=== PATIENT | female | born 1945 | race African-American/Black ===

== ENCOUNTER 2017-12-07 06:55 | Day surgery (SDC) | payer MEDICARE, BC ==
[~2017-12-07] VITALS: Ht 177.8 cm; Wt 84.8 kg
[~2017-12-07 06:55] MED LIST: LACTATED RINGERS 1,000 ML IV SCH
[2017-12-07] MEDS ORDERED: METO-385 PO (07:30)
[2017-12-07] MEDS ORDERED: LORA0.5T2 PO (07:30)
[2017-12-07] MEDS ORDERED: NAPR220T66 PO (07:30)
[2017-12-07 08:12] LABS: BASOPHILS % 0.4 % (0.0-2.0); EOSINOPHILS % 0.7 % (0.0-5.0); HEMATOCRIT. 41.3 % (36.0-48.0); LYMPHOCYTES % 29.1 % (20.0-50.0); MEAN CORPUSCULAR HEMOGLOBIN 30.2 pg (28.0-32.0); MEAN CORPUSCULAR VOLUME 88.8 fL (81.0-99.0); MONOCYTES % 7.3 % (2.0-8.0); NEUTROPHILS % 62.5 % (40.0-76.0); PLATELET 179 x1000/uL (130-400); RED BLOOD CELL COUNT 4.65 mill/uL (4.2-5.4); RED CELL DISTRIBUTION WIDTH 12.9 % (11.6-14.6)
[2017-12-07 08:13] LABS: CHLORIDE 109 mEq/L (98-107)
[2017-12-07 08:14] LABS: INR 1.1; PARTIAL THROMBOPLASTIN TIME 25.6 sec (23.4-31.0); PROTHROMBIN TIME 10.9 sec (9.4-11.6)
[2017-12-07] MEDS ORDERED: ACETAMINOPHEN 325MG TABLET PO PRN (08:45)
[2017-12-07] MEDS ORDERED: FENTANYL CITRATE/PF 50MCG/ML 2ML VIAL ONE (08:50)
[2017-12-07] MEDS ORDERED: LIDOCAINE HCL/PF 1% 10 MG/ML 5ML VIAL ONE (08:50)
[2017-12-07] MEDS ORDERED: MIDAZOLAM HCL 2 MG/2 ML VIAL ONE (08:50)
[2017-12-07] MEDS ORDERED: GLYCOPYRROLATE 0.2 MG/ML 2ML VIAL ONE (08:50)
[2017-12-07] MEDS ORDERED: PROPOFOL 200MG/20ML VIAL IV ONE (08:50)
[2017-12-07] MEDS ORDERED: CEFAZOLIN SODIUM 1000MG/VIAL ONE (08:51)
[2017-12-07] MEDS ORDERED: ONDANSETRON HCL 4MG/2ML VIAL ONE (08:51)
[2017-12-07] MEDS ORDERED: METOCLOPRAMIDE HCL 10MG/2ML VIAL ONE (08:51)
[2017-12-07] MEDS ORDERED: EPHEDRINE SULFATE 50MG/ML VIAL ONE (09:42)
== END 2017-12-07 11:06 | disposition home or self-care (01) ==
LOC: OR 06:55
PROVIDERS: ATTEND Obstetrics & Gynecology Obstetrics
DX: N84.0 Polyp of corpus uteri (principal); I10 Essential (primary) hypertension; G47.30 Sleep apnea, unspecified; F41.9 Anxiety disorder, unspecified; Z90.49 Acquired absence of other specified parts of digestive tract; Z98.51 Tubal ligation status; K21.9 Gastro-esophageal reflux disease without esophagitis; Z79.01 Long term (current) use of anticoagulants; Z88.2 Allergy status to sulfonamides; Z88.5 Allergy status to narcotic agent
CPT/HCPCS: 36415; 58558; 80048; 85025; 85610; 85730; 88305; 93005; J0690; J2250; J2405; J2765; J3010; J3490; J7120; J2704

== ENCOUNTER 2024-05-31 14:16 | Inpatient (IN) | payer MEDICARE, BC ==
[~2024-05-31] VITALS: Ht 172.7 cm; Wt 72.6 kg
[~2024-05-31 14:16] MED LIST changes: -LACTATED RINGERS 1,000 ML IV SCH; +LORA0.5T2 PO; +METO-385 PO; +NAPR220T66 PO
[2024-05-31 14:19] VITALS: O2SAT 100
[2024-05-31] MEDS ORDERED: LORAZEPAM 2MG/ML INJ IV ONE (14:45)
[2024-05-31 15:28] LABS: BASOPHILS % 0.9 % (0.0-2.0); EOSINOPHILS % 1.7 % (0.0-5.0); HEMATOCRIT. 40.5 % (36.0-48.0); HEMOGLOBIN. 13.5 g/dL (12.0-16.0); LYMPHOCYTES % 32.7 % (20.0-50.0); MEAN CORPUSCULAR HEMOGLOBIN 30.4 pg (28.0-32.0); MEAN CORPUSCULAR HGB CONC 33.2 g/dL (31.0-37.0); MEAN CORPUSCULAR VOLUME 91.5 fL (81.0-99.0); MEAN PLATELET VOLUME 9.8 fl (7.4-10.4); MONOCYTES % 11.4 % (2.0-8.0); NEUTROPHILS % 53.3 % (40.0-76.0); PLATELET 161 x1000/uL (130-400); RED BLOOD CELL COUNT 4.43 mill/uL (4.2-5.4); RED CELL DISTRIBUTION WIDTH 12.7 % (11.6-14.6); WHITE BLOOD COUNT 3.9 x1000/uL (4.5-11.0)
[2024-05-31 15:38] LABS: PARTIAL THROMBOPLASTIN TIME 26.5 sec (23.4-31.0); PROTHROMBIN TIME 11.2 sec (9.6-11.0)
[2024-05-31 16:04] LABS: CHLORIDE 106 mEq/L (98-107); POTASSIUM 3.6 mEq/L (3.5-5.1); SODIUM 140 mEq/L (136-145)
[2024-05-31 16:05] LABS: CARBON DIOXIDE 27 mEq/L (21-32)
[2024-05-31 16:06] LABS: CALCIUM 10.6 mg/dL (8.7-10.4)
[2024-05-31 16:10] LABS: CREATININE 0.9 mg/dL (0.6-1.0); GLUCOSE 95 mg/dL (70-105)
[2024-05-31 16:11] LABS: UREA NITROGEN BLOOD 12 mg/dL (9-23)
[2024-05-31 16:12] LABS: ALANINE AMINOTRANSFERASE 11 IU/L (10-49); ALBUMIN 4.2 g/dL (3.2-4.8); ASPARTATE AMINOTRANSFERASE 22 IU/L (<34)
[2024-05-31 16:13] LABS: BILIRUBIN DIRECT 0.4 mg/dL (<=3.0); BILIRUBIN TOTAL 1.8 mg/dL (0.1-1.0); PROTEIN TOTAL 6.6 g/dL (6.0-8.3)
[2024-05-31 16:20] LABS: TROPONIN I HIGH SENSITIVITY < 4 ng/L (3.0-34)
[2024-05-31] MEDS ORDERED: ASPIRIN 325MG EC TABLET PO ONE (16:45)
[2024-05-31] MEDS: SODIUM CHLORIDE 0.9% 1,000 ML IV ONE (18:39)
[2024-05-31] MEDS: ASPIRIN 325MG EC TABLET PO NR (18:40)
[2024-05-31] MEDS: LORAZEPAM 2MG/ML INJ IV NR (19:13)
[2024-05-31] MEDS ORDERED: DOCUSATE SODIUM 100MG CAPSULE PO PRN (19:45)
[2024-05-31] MEDS ORDERED: GUAIFENESIN 200MG/10ML SUGAR FREE UDC PO PRN (19:45)
[2024-05-31] MEDS ORDERED: CLONIDINE 0.1MG TABLET PO PRN (19:45)
[2024-05-31] MEDS ORDERED: ONDANSETRON HCL 4MG/2ML INJ IV PRN (19:45)
[2024-05-31] MEDS ORDERED: IPRATROPIUM/ALBUTEROL 0.5-3(2.5)MG/3ML NEB HHN PRN (19:45)
[2024-05-31] MEDS ORDERED: MAGNESIUM/ALUMINUM HYDROXIDE/SIMETHICONE 30ML UDC PO PRN (19:45)
[2024-05-31] MEDS ORDERED: ACETAMINOPHEN 325MG TABLET PO PRN (19:45)
[2024-05-31 22:00] VITALS: BP 144/75; PULSE 77; RESP 19; TEMP 36.50292; O2SAT 100
[2024-05-31] MEDS: PANTOPRAZOLE SODIUM 40 MG/VIAL IV SCH (22:11)
[2024-05-31] MEDS: ENOXAPARIN 40MG/0.4ML SYR SUBCUT SCH (22:11)
[2024-05-31] MEDS: ACETAMINOPHEN 325MG TABLET PO PRN (22:19)
[2024-05-31 23:14] VITALS: BP 150/86; PULSE 82; RESP 19; TEMP 36.2512
[2024-05-31] MEDS: AMLODIPINE 5MG TABLET PO SCH (23:45)
[2024-06-01] VITALS: BP 140/75; PULSE 75; RESP 18; TEMP 36.78072; O2SAT 100
[2024-06-01 04:00] VITALS: BP 141/78; PULSE 69; RESP 18; TEMP 36.33624; O2SAT 100
[2024-06-01 06:50] LABS: TROPONIN I HIGH SENSITIVITY 7 ng/L (3.0-34)
[2024-06-01 06:53] LABS: CHLORIDE 108 mEq/L (98-107)
[2024-06-01 06:54] LABS: CALCIUM 10.4 mg/dL (8.7-10.4); CARBON DIOXIDE 23 mEq/L (21-32); POTASSIUM 3.7 mEq/L (3.5-5.1); SODIUM 141 mEq/L (136-145); T4 FREE 1.51 ng/dL (0.89-1.76)
[2024-06-01 06:55] LABS: FOLIC ACID (FOLATE) SERUM 14.51 ng/mL (>5.38); VITAMIN B12 SERUM 764 pg/mL (211-911)
[2024-06-01 06:56] LABS: THYROID STIMULATING HORMONE 1.56 uIU/mL (0.55-4.78)
[2024-06-01 06:59] LABS: BASOPHILS % 0.5 % (0.0-2.0); CREATININE 0.8 mg/dL (0.6-1.0); EOSINOPHILS % 1.2 % (0.0-5.0); GLUCOSE 86 mg/dL (70-105); HEMATOCRIT. 40.1 % (36.0-48.0); HEMOGLOBIN. 13.1 g/dL (12.0-16.0); LYMPHOCYTES % 33.3 % (20.0-50.0); MEAN CORPUSCULAR HEMOGLOBIN 30.5 pg (28.0-32.0); MEAN CORPUSCULAR HGB CONC 32.6 g/dL (31.0-37.0); MEAN CORPUSCULAR VOLUME 93.6 fL (81.0-99.0); MEAN PLATELET VOLUME 10.2 fl (7.4-10.4); PLATELET 164 x1000/uL (130-400); RED BLOOD CELL COUNT 4.29 mill/uL (4.2-5.4); RED CELL DISTRIBUTION WIDTH 12.8 % (11.6-14.6); WHITE BLOOD COUNT 4.3 x1000/uL (4.5-11.0)
[2024-06-01 07:00] LABS: LDL CHOLESTEROL 122 mg/dL (5-100); TRIGLYCERIDE 53 mg/dL (0-150); UREA NITROGEN BLOOD 7 mg/dL (9-23)
[2024-06-01 07:01] LABS: ALANINE AMINOTRANSFERASE 9 IU/L (10-49); ASPARTATE AMINOTRANSFERASE 22 IU/L (<34); CHOLESTEROL 199 mg/dL (<200); CREATINE KINASE 83 IU/L (34-145); HDL CHOLESTEROL 61 mg/dL (>65); PHOSPHORUS 3.1 mg/dL (2.5-4.9)
[2024-06-01 07:02] LABS: BILIRUBIN TOTAL 2.1 mg/dL (0.1-1.0); PROTEIN TOTAL 6.3 g/dL (6.0-8.3)
[2024-06-01 08:00] VITALS: BP 148/81; PULSE 69; RESP 20; TEMP 36.3918; O2SAT 100
[2024-06-01] MEDS: THIAMINE HCL 100MG TABLET PO SCH (08:08)
[2024-06-01 12:00] VITALS: BP 158/94; PULSE 80; RESP 16; TEMP 36.55848; O2SAT 100
[2024-06-01 16:00] VITALS: BP 132/80; PULSE 95; RESP 17; TEMP 36.6696; TEMP 36.66960; O2SAT 100
[2024-06-01] MEDS ORDERED: PROPRANOLOL HCL 10MG TABLET PO SCH (21:00)
[2024-06-01] MEDS ORDERED: FAMOTIDINE 20MG TABLET PO SCH (21:00)
[2024-06-01] MEDS ORDERED: ATORVASTATIN CALCIUM 20MG TABLET PO SCH (21:00)
[2024-06-02] MEDS ORDERED: FAMOTIDINE 20MG/2ML VIAL IV SCH (09:00)
== END 2024-06-01 19:40 | disposition left against medical advice (07) | DRG 640 ==
LOC: ER 14:16 → EDBEDREQTM 16:39 → EDBEDREQ 16:39 → 5WST 21:27 → 3WST 22:45
PROVIDERS: ADMIT Hospitalist; ATTEND Hospitalist
DX: E83.52 Hypercalcemia (principal); I33.0 Acute and subacute infective endocarditis; I10 Essential (primary) hypertension; G31.9 Degenerative disease of nervous system, unspecified; R90.82 White matter disease, unspecified; Z53.29 Procedure and treatment not carried out because of patient's decision for other reasons; M19.90 Unspecified osteoarthritis, unspecified site; E78.5 Hyperlipidemia, unspecified; E80.7 Disorder of bilirubin metabolism, unspecified; Z88.2 Allergy status to sulfonamides; Z79.899 Other long term (current) drug therapy; Z88.5 Allergy status to narcotic agent
CPT/HCPCS: 36415; 71045; 80048; 80053; 80061; 80076; 82550; 82607; 82746; 82962; 83735; 83880; 84100; 84439; 84443; 84484; 85025; 93005; 93306; 99285; J1650; J2060; J2470; J7030

== ENCOUNTER 2024-07-10 19:11 | Emergency (ER) | payer MEDICARE, BC ==
[~2024-07-10] VITALS: Ht 162.6 cm; Wt 80.0 kg
[2024-07-10 19:15] VITALS: TEMP 97.6; O2SAT 98
[2024-07-10] MEDS: KETOROLAC 30MG/ML VIAL IV STA (20:39)
[2024-07-10] MEDS: SODIUM CHLORIDE 0.9% 1,000 ML IV ONE (20:40)
[2024-07-10 20:44] LABS: BASOPHILS % 0.4 % (0.0-2.0); EOSINOPHILS % 1.8 % (0.0-5.0); HEMATOCRIT. 35.1 % (36.0-48.0); HEMOGLOBIN. 11.6 g/dL (12.0-16.0); LYMPHOCYTES % 26.9 % (20.0-50.0); MEAN CORPUSCULAR HEMOGLOBIN 30.2 pg (28.0-32.0); MEAN CORPUSCULAR HGB CONC 33.2 g/dL (31.0-37.0); MEAN CORPUSCULAR VOLUME 91.1 fL (81.0-99.0); MEAN PLATELET VOLUME 9.7 fl (7.4-10.4); MONOCYTES % 12.8 % (2.0-8.0); NEUTROPHILS % 58.1 % (40.0-76.0); PLATELET 204 x1000/uL (130-400); RED BLOOD CELL COUNT 3.85 mill/uL (4.2-5.4); RED CELL DISTRIBUTION WIDTH 13.3 % (11.6-14.6)
[2024-07-10] MEDS ORDERED: HYDROCODONE/ACETAMINOPHEN 5/325MG TABLET PO ONE (20:45)
[2024-07-10 20:46] LABS: CHLORIDE 112 mEq/L (98-107); POTASSIUM 4.1 mEq/L (3.5-5.1); SODIUM 143 mEq/L (136-145)
[2024-07-10 20:47] LABS: CARBON DIOXIDE 28 mEq/L (21-32)
[2024-07-10 20:52] LABS: CREATININE 0.8 mg/dL (0.6-1.0); GLUCOSE 118 mg/dL (70-105); UREA NITROGEN BLOOD 14 mg/dL (9-23)
[2024-07-10 23:50] VITALS: BP 158/87; PULSE 76; RESP 16; O2SAT 100
== END 2024-07-11 00:08 | disposition home or self-care (01) ==
LOC: ER 19:11
DX: G89.29 Other chronic pain (principal); M25.551 Pain in right hip; M25.552 Pain in left hip; F41.9 Anxiety disorder, unspecified; I10 Essential (primary) hypertension; Z79.899 Other long term (current) drug therapy; Z88.2 Allergy status to sulfonamides; Z88.5 Allergy status to narcotic agent
CPT/HCPCS: 99285; 96374; 72192; 96361; 80048; 85025; 36415; J1885; J7030

== ENCOUNTER 2024-08-30 09:25 | Inpatient (IN) | payer MEDICARE, BC ==
[~2024-08-30] VITALS: Ht 175.3 cm; Wt 70.4 kg
[~2024-08-30 09:25] MED LIST changes: +LEVO-65 MT; +NAPR-679 MT
[2024-08-30 09:29] VITALS: O2SAT 100
[2024-08-30 10:04] LABS: BASOPHILS % 0.6 % (0.0-2.0); HEMATOCRIT. 40.6 % (36.0-48.0); HEMOGLOBIN. 12.8 g/dL (12.0-16.0); LYMPHOCYTES % 45.4 % (20.0-50.0); MEAN CORPUSCULAR HEMOGLOBIN 29.6 pg (28.0-32.0); MEAN CORPUSCULAR HGB CONC 31.6 g/dL (31.0-37.0); MEAN CORPUSCULAR VOLUME 93.7 fL (81.0-99.0); MEAN PLATELET VOLUME 9.9 fl (7.4-10.4); MONOCYTES % 9.6 % (2.0-8.0); NEUTROPHILS % 41.4 % (40.0-76.0); PLATELET 153 x1000/uL (130-400); RED BLOOD CELL COUNT 4.34 mill/uL (4.2-5.4); RED CELL DISTRIBUTION WIDTH 14.3 % (11.6-14.6)
[2024-08-30 10:12] LABS: CARBON DIOXIDE 26 mEq/L (21-32); CHLORIDE 109 mEq/L (98-107); POTASSIUM 4.3 mEq/L (3.5-5.1); SODIUM 141 mEq/L (136-145)
[2024-08-30 10:18] LABS: CREATININE 0.7 mg/dL (0.6-1.0); GLUCOSE 92 mg/dL (70-105); UREA NITROGEN BLOOD 12 mg/dL (9-23)
[2024-08-30] MEDS: MORPHINE SULFATE 4 MG/ML INJ (FOR IV/IM USE) IV ONE (11:52)
[2024-08-30] MEDS ORDERED: ONDANSETRON HCL 4MG/2ML INJ IV PRN (12:45)
[2024-08-30] MEDS ORDERED: CLONIDINE 0.1MG TABLET PO PRN (12:45)
[2024-08-30] MEDS ORDERED: NITROGLYCERIN 0.4MG TABLET SL SL PRN (12:45)
[2024-08-30] MEDS ORDERED: ACETAMINOPHEN 325MG TABLET PO PRN (12:45)
[2024-08-30] MEDS ORDERED: GUAIFENESIN 200MG/10ML SUGAR FREE UDC PO PRN (12:45)
[2024-08-30] MEDS ORDERED: DOCUSATE SODIUM 100MG CAPSULE PO PRN (12:45)
[2024-08-30] MEDS ORDERED: IPRATROPIUM/ALBUTEROL 0.5-3(2.5)MG/3ML NEB HHN PRN (12:45)
[2024-08-30 12:49] LABS: TROPONIN I HIGH SENSITIVITY < 4 ng/L (3.0-34)
[2024-08-30 13:39] LABS: T4 FREE 1.24 ng/dL (0.89-1.76); THYROID STIMULATING HORMONE 0.91 uIU/mL (0.55-4.78)
[2024-08-30] MEDS: ASPIRIN 81MG TABLET PO ONE (14:02)
[2024-08-30] MEDS: ENOXAPARIN 40MG/0.4ML SYR SUBCUT SCH (14:05)
[2024-08-30] MEDS: ACETAMINOPHEN 325MG TABLET PO PRN (16:50)
[2024-08-30] MEDS: LORAZEPAM 0.5MG TABLET PO PRN (16:50)
[2024-08-30 16:55] VITALS: BP 156/73; PULSE 98; RESP 21; TEMP 36.4736
[2024-08-30 17:05] VITALS: BP 156/73; PULSE 98; RESP 18; TEMP 36.44736; O2SAT 98
[2024-08-30 20:00] VITALS: BP_SYST 124; BP_SYST 146; BP_DIAS 70; BP_DIAS 79; PULSE 69; PULSE 87; RESP 16; RESP 18; TEMP 36.28068; TEMP 36.50292; O2SAT 100; O2SAT 99
[2024-08-30] MEDS: ATORVASTATIN CALCIUM 40MG TABLET PO SCH (20:43)
[2024-08-30 20:45] LABS: TROPONIN I HIGH SENSITIVITY < 4 ng/L (3.0-34)
[2024-08-31] VITALS: BP_SYST 124; BP_SYST 146; BP_DIAS 70; BP_DIAS 79; PULSE 69; PULSE 87; RESP 16; RESP 18; TEMP 36.28068; TEMP 36.50292; O2SAT 100
[2024-08-31 04:00] VITALS: BP 132/76; PULSE 84; RESP 18; TEMP 36.44736; O2SAT 99
[2024-08-31 08:00] VITALS: BP 112/75; PULSE 98; RESP 18; TEMP 36.89184; O2SAT 96
[2024-08-31] MEDS: ASPIRIN 81MG TABLET PO SCH (08:38)
[2024-08-31] MEDS: AMLODIPINE 5MG TABLET PO SCH (08:39)
[2024-08-31 09:09] LABS: BASOPHILS % 0.5 % (0.0-2.0); EOSINOPHILS % 0.9 % (0.0-5.0); HEMATOCRIT. 39.3 % (36.0-48.0); HEMOGLOBIN. 12.5 g/dL (12.0-16.0); LYMPHOCYTES % 30.3 % (20.0-50.0); MEAN CORPUSCULAR HEMOGLOBIN 29.6 pg (28.0-32.0); MEAN CORPUSCULAR HGB CONC 31.7 g/dL (31.0-37.0); MEAN CORPUSCULAR VOLUME 93.4 fL (81.0-99.0); MEAN PLATELET VOLUME 10.1 fl (7.4-10.4); MONOCYTES % 10.9 % (2.0-8.0); NEUTROPHILS % 57.4 % (40.0-76.0); PLATELET 160 x1000/uL (130-400); WHITE BLOOD COUNT 4.7 x1000/uL (4.5-11.0)
[2024-08-31 09:13] LABS: CARBON DIOXIDE 25 mEq/L (21-32); CHLORIDE 107 mEq/L (98-107); POTASSIUM 3.9 mEq/L (3.5-5.1); SODIUM 140 mEq/L (136-145)
[2024-08-31 09:14] LABS: CALCIUM 10.2 mg/dL (8.7-10.4)
[2024-08-31 09:18] LABS: CREATININE 0.8 mg/dL (0.6-1.0); GLUCOSE 84 mg/dL (70-105)
[2024-08-31 09:19] LABS: UREA NITROGEN BLOOD 12 mg/dL (9-23)
[2024-08-31 09:20] LABS: ALANINE AMINOTRANSFERASE 11 IU/L (10-49); ALBUMIN 3.9 g/dL (3.2-4.8); ASPARTATE AMINOTRANSFERASE 27 IU/L (<34)
[2024-08-31 09:21] LABS: PROTEIN TOTAL 6.4 g/dL (6.0-8.3)
[2024-08-31 12:00] VITALS: BP 128/69; PULSE 79; RESP 22; TEMP 36.61404; O2SAT 100
[2024-08-31 16:00] VITALS: BP 122/59; PULSE 72; RESP 18; TEMP 36.6696; O2SAT 98
[2024-08-31 20:00] VITALS: BP 117/65; PULSE 77; RESP 17; TEMP 36.22512; O2SAT 99
[2024-09-01] VITALS: BP 114/75; PULSE 76; RESP 16; TEMP 36.16956; O2SAT 98
[2024-09-01 04:00] VITALS: BP 128/68; PULSE 85; RESP 17; TEMP 35.89176; O2SAT 99
[2024-09-01 08:00] VITALS: BP 146/70; PULSE 90; RESP 18; TEMP 36.114; O2SAT 100
[2024-09-01 12:00] VITALS: BP 138/68; PULSE 88; RESP 18; TEMP 36.50292; O2SAT 100
[2024-09-01 12:54] LABS: CHLORIDE 108 mEq/L (98-107); POTASSIUM 4.7 mEq/L (3.5-5.1); SODIUM 142 mEq/L (136-145)
[2024-09-01 12:55] LABS: CARBON DIOXIDE 23 mEq/L (21-32)
[2024-09-01 12:56] LABS: CALCIUM 10.4 mg/dL (8.7-10.4)
[2024-09-01 13:00] LABS: CREATININE 0.8 mg/dL (0.6-1.0); GLUCOSE 82 mg/dL (70-105); UREA NITROGEN BLOOD 12 mg/dL (9-23)
[2024-09-01] MEDS ORDERED: ASPI-1160 PO (13:12)
[2024-09-01] MEDS ORDERED: LIP40 PO (13:12)
[2024-09-01] MEDS ORDERED: AMLO5TAB88 PO (13:12)
[2024-09-01 14:58] LABS: ALANINE AMINOTRANSFERASE 13 IU/L (10-49); ASPARTATE AMINOTRANSFERASE 31 IU/L (<34); BILIRUBIN DIRECT 0.4 mg/dL (<=3.0); BILIRUBIN TOTAL 1.7 mg/dL (0.1-1.0); PROTEIN TOTAL 6.6 g/dL (6.0-8.3)
[2024-09-01 15:05] LABS: HEMATOCRIT 40.9 % (36.0-48.0); HEMOGLOBIN 13.1 g/dL (12.0-16.0); MEAN CORPUSCULAR HGB CONC 32.1 g/dL (31.0-37.0); MEAN CORPUSCULAR VOLUME 93.6 fL (81.0-99.0); PLATELET 169 x1000/uL (130-400); RED BLOOD CELL COUNT 4.37 mill/uL (4.2-5.4); RED CELL DISTRIBUTION WIDTH 13.6 % (11.6-14.6); WHITE BLOOD COUNT 4.9 x1000/uL (4.5-11.0)
[2024-09-01 16:00] VITALS: BP 144/70; PULSE 78; RESP 20; TEMP 36.3918; TEMP 36.39180; O2SAT 100
[2024-09-01] MEDS ORDERED: MELATONIN 3MG TABLET PO SCH (21:00)
== END 2024-09-01 22:33 | disposition home or self-care (01) | DRG 205 ==
LOC: ER 09:25 → 7EST 12:08
PROVIDERS: ADMIT Hospitalist; ATTEND Hospitalist
DX: M94.0 Chondrocostal junction syndrome [Tietze] (principal); L89.153 Pressure ulcer of sacral region, stage 3; F41.0 Panic disorder [episodic paroxysmal anxiety]; I10 Essential (primary) hypertension; E78.5 Hyperlipidemia, unspecified; M48.02 Spinal stenosis, cervical region; M48.061 Spinal stenosis, lumbar region without neurogenic claudication; M51.369 Other intervertebral disc degeneration, lumbar region without mention of lumbar back pain or lower extremity pain; M47.816 Spondylosis without myelopathy or radiculopathy, lumbar region; M41.85 Other forms of scoliosis, thoracolumbar region; R25.1 Tremor, unspecified; I34.0 Nonrheumatic mitral (valve) insufficiency; R07.89 Other chest pain; Z74.01 Bed confinement status; Z88.2 Allergy status to sulfonamides; Z88.5 Allergy status to narcotic agent
CPT/HCPCS: 36415; 71045; 80048; 80053; 80061; 80076; 83036; 83880; 84439; 84443; 84484; 85025; 85027; 85379; 93005; 97166; 99285; J1650; J2270